=== PATIENT | female | born 1940 | race Caucasian/White ===

== ENCOUNTER 2023-01-07 05:34 | Day surgery (SDC) | payer OTHER ==
[2023-01-02 16:42] VITALS: BMI 30.2
[2023-01-07 12:05] VITALS: RESP 18
[2023-01-07] MEDS ORDERED: LIDOCAINE HCL 2% (20ML MULTI-DOSE VIAL) ONE (13:22)
[2023-01-07] MEDS ORDERED: MIDAZOLAM HCL 2 MG/2 ML SINGLE DOSE VIAL ONE (13:37)
[2023-01-07] MEDS ORDERED: LIDOCAINE HCL 2% (50ML VIAL) INF ONE (13:46)
[2023-01-07] MEDS ORDERED: ONDANSETRON 4 MG/2 ML VIAL ONE (13:46)
[2023-01-07] MEDS ORDERED: KETOROLAC TROMETHAMINE 30 MG/1 ML VIAL ONE (14:02)
[2023-01-07 15:33] VITALS: BP 130/81; PULSE 73; TEMP 98.7
== END 2023-01-07 15:15 | disposition home or self-care (01) ==
LOC: JASU-SURG 05:34
PROVIDERS: ATTEND Obstetrics & Gynecology
PROC: 0UBM0ZX Excision of Vulva, Open Approach, Diagnostic (ICD-10-PCS; principal; 2023-01-07 13:00)
DX: D39.8 Neoplasm of uncertain behavior of other specified female genital organs (principal)
CPT/HCPCS: 82962; 88304-TC